=== PATIENT | male | born 1955 | race Caucasian/White ===

== ENCOUNTER 2018-01-22 13:01 | Emergency (ER) | payer OTHER, BC ==
[~2018-01-22] VITALS: Ht 185.4 cm; Wt 122.7 kg
[~2018-01-22 13:01] MED LIST: COUMADIN5 MG PO; DOCUSATE SODIU100 MG PO; HYDROCODON-ACE1 EAC7 PO; LIPITOR10 MG PO; LO-DOSE ASPIRIN81 M2 PO
[2018-01-22 14:28] LABS: HEMATOCRIT 44.4 % (38.0-50.0); HEMOGLOBIN 15.6 G/DL (12.5-16.6); MCH 31.8 PG (29.0-34.0); MCHC 35.1 G/DL (30.0-36.0); MCV 90.4 FL (86-99); PLATELET COUNT 182 K/uL (156-360); RBC DIS.WIDTH-CV 12.9 % (11.8-14.6); RBC DIS.WIDTH-SD 42.8 % (39-53); RED BLOOD COUNT 4.91 M/uL (4.00-5.50); WHITE BLOOD COUNT 9.6 K/uL (4.1-10.2)
[2018-01-22 14:37] LABS: ALBUMIN 3.9 g/dL (3.2-4.8)
[2018-01-22 14:38] LABS: CHLORIDE 107 mEq/L (99-109); POTASSIUM 4.3 mEq/L (3.7-5.4); SODIUM 141 mEq/L (136-147)
[2018-01-22 14:40] LABS: GLUCOSE 122 mg/dL (70-99); TOTAL PROTEIN 7.5 g/dL (6.4-8.3)
[2018-01-22 14:42] LABS: TOTAL BILIRUBIN 0.4 mg/dL (0.0-1.0)
[2018-01-22 14:43] LABS: ALKALINE PHOSPHATASE 69 IU/L (3-129)
[2018-01-22 14:44] LABS: GFR ESTIMATE (CALCULATED) > 59 mL/min/ (58.99-99999)
[2018-01-22 14:45] LABS: AST (GOT) 14 IU/L (2-34); UREA NITROGEN (BUN) 19 mg/dL (9-23)
[2018-01-22 14:46] LABS: ALT (GPT) 17 IU/L (3-49)
[2018-01-22] MEDS ORDERED: KEFLEX500 MG PO (15:26)
[2018-01-22 16:59] VITALS: BP 171/92
== END 2018-01-22 17:00 | disposition home or self-care (01) ==
LOC: EME 13:01
PROVIDERS: Nurse Practitioner Family
DX: L03.114 Cellulitis of left upper limb (principal); S59.902A Unspecified injury of left elbow, initial encounter; W22.09XA Striking against other stationary object, initial encounter; F17.200 Nicotine dependence, unspecified, uncomplicated; Z79.82 Long term (current) use of aspirin
CPT/HCPCS: 73080; 80053; 83605; 85027; 87040; 93971; 99281; 99284

== ENCOUNTER 2018-05-11 16:41 | Observation (INO) | payer OTHER, BC ==
[~2018-05-11] VITALS: Ht 185.4 cm; Wt 121.6 kg
[~2018-05-11 16:41] MED LIST changes: +KEFLEX500 MG PO
[2018-05-11 17:13] LABS: HEMATOCRIT 48.2 % (38.0-50.0); HEMOGLOBIN 16.7 G/DL (12.5-16.6); MCH 31.2 PG (29.0-34.0); MCHC 34.6 G/DL (30.0-36.0); MCV 89.9 FL (86-99); PLATELET COUNT 181 K/uL (156-360); RBC DIS.WIDTH-CV 13.3 % (11.8-14.6); RBC DIS.WIDTH-SD 43.8 % (39-53); RED BLOOD COUNT 5.36 M/uL (4.00-5.50); WHITE BLOOD COUNT 8.2 K/uL (4.1-10.2)
[2018-05-11 17:53] LABS: CHLORIDE 104 MEQ/L (99-109); CREATININE 0.9 MG/DL (0.6-1.3); GFR ESTIMATE (CALCULATED) > 59 mL/min/ (58.99-99999); GLUCOSE 106 mg/dL (70-99); POTASSIUM 5.1 MEQ/L (3.7-5.4); SODIUM 137 MEQ/L (136-147); UREA NITROGEN (BUN) 15 mg/dL (9-23)
[2018-05-11 18:55] LABS: TROP-I INTERPRETATION NEGATIVE; TROPONIN-I < 0.01 ng/mL (0.0-0.30)
[2018-05-11 19:47] LABS: APPEARANCE TURBID ((CLEAR)); BILIRUBIN NEGATIVE; BLOOD NEGATIVE; COLOR AMBER ((YELLOW)); GLUCOSE (STRIP) NEGATIVE; KETONES NEGATIVE; LEUKOCYTES SMALL; NITRITE POSITIVE; PROTEIN (STRIP) 100; SPECIFIC GRAVITY 1.017 (1.000-1.030); UROBILINOGEN 0.2 MG/DL (0.2-1.0)
[2018-05-11] MEDS ORDERED: TYLENOL EXTRA500 MG PO (19:59)
[2018-05-11 20:21] LABS: RED BLOOD CELLS 0-5 /HPF (0-5)
[2018-05-11 20:22] LABS: EPITHELIAL CELLS 2+ /HPF; WHITE BLOOD CELLS 30-40 /HPF (0-5)
[2018-05-11 20:23] LABS: AMORPHOUS PHOSPHATE CRYSTALS 3+; BACTERIA 3+ /HPF; MUCUS RARE /LPF; TRIPLE PHOSPHATE CRYSTALS 1+ /HPF; UCUL ADDED? YES
[2018-05-11 23:14] LABS: THYROTROPIN (TSH) 0.91 MIU/L (0.4-5.5)
[2018-05-11 23:16] LABS: D-DIMER ELISA < 150.00 ng/mLDDU (<230)
[2018-05-12 00:05] VITALS: BP 142/72
[2018-05-12 04:15] VITALS: BP 136/65
[2018-05-12 08:27] VITALS: BP 141/71
[2018-05-12 11:55] VITALS: BP 139/75
[2018-05-12] MEDS ORDERED: PREDNISONE10 MG PO (14:15)
[2018-05-12] MEDS ORDERED: AZITHROMYCIN500 M1 PO (14:15)
[2018-05-12] MEDS ORDERED: MECLIZINE HCL25 MG PO (14:21)
== END 2018-05-12 15:11 | disposition home or self-care (01) ==
LOC: EME 16:41 → EDOF 22:01 → ENRESERV 22:04 → 4SOUTH 23:54
PROVIDERS: Physician Assistant; Physician Assistant Medical
DX: R42 Dizziness and giddiness (principal); J32.0 Chronic maxillary sinusitis; R00.1 Bradycardia, unspecified; R91.8 Other nonspecific abnormal finding of lung field; Z85.51 Personal history of malignant neoplasm of bladder; Z79.82 Long term (current) use of aspirin; Z72.0 Tobacco use; Z86.718 Personal history of other venous thrombosis and embolism; Z92.21 Personal history of antineoplastic chemotherapy; Z80.0 Family history of malignant neoplasm of digestive organs
CPT/HCPCS: 70450; 70553; 71046; 71250; 80048; 81003; 83880; 84443; 84484; 85027; 85379; 87086; 93005; 99281; 99285; G0378; J0696; J0744; J1650; J7030